=== PATIENT | female | born 1975 | race African-American/Black ===

== ENCOUNTER 2018-09-03 16:01 | Emergency (ER) | payer MEDICAID ==
[~2018-09-03] VITALS: Ht 165.1 cm; Wt 125.0 kg
[2018-09-03] MEDS ORDERED: KETOROLAC 30 MG/1 ML IM ONE (16:30)
[2018-09-03] MEDS ORDERED: KETOROLAC 30 MG/1 ML ONE (16:32)
[2018-09-03 16:50] LABS: BASOPHILS # (AUTO) 0.02 x10^3/uL (0-0.1); BASOPHILS % (AUTO) 0 % (0-1); EOSINOPHILS # (AUTO) 0.25 x10^3/uL (0-0.4); EOSINOPHILS % (AUTO) 4 % (1-7); LYMPHOCYTES # (AUTO) 1.64 x10^3/uL (1-3.4); LYMPHOCYTES % (AUTO) 25 % (22-44); MD NO; MEAN CORPUSCULAR HEMOGLOBIN 27.6 pg (27.0-34.8); MEAN CORPUSCULAR HGB CONC 33.1 g/dL (32.4-35.8); MEAN CORPUSCULAR VOLUME 83.4 fL (80-100); MEAN PLATELET VOLUME 8.3 fL (7.4-10.4); MONOCYTES # (AUTO) 0.21 x10^3/uL (0.2-0.8); MONOCYTES % (AUTO) 3 % (2-9); NEUTROPHILS # (AUTO) 4.52 x10^3/uL (1.8-6.8); NEUTROPHILS % (AUTO) 68 % (42-75); PLATELET COUNT 375 x10^3/uL (130-400); RED BLOOD COUNT 4.53 x10^6/uL (3.82-5.3); RED CELL DISTRIBUTION WIDTH 15.1 % (9.6-15.2)
[2018-09-03 16:59] LABS: ALBUMIN 3.6 g/dL (3.4-5.0); ANION GAP 10 mmol/L (5-15); CALCIUM 8.6 mg/dL (8.5-10.1); CHLORIDE 108 mmol/L (98-107)
[2018-09-03 17:04] LABS: ALANINE AMINOTRANSFERASE 21 U/L (12-78); ALKALINE PHOSPHATASE 88 U/L (45-117); BILIRUBIN,TOTAL 0.4 mg/dL (0.2-1.0); CREATININE 0.84 mg/dL (0.55-1.02); TROPONIN I < 0.015 ng/mL (0.000-0.045)
[2018-09-03 17:56] VITALS: BP 140/53
== END 2018-09-03 18:14 | disposition home or self-care (01) ==
LOC: ED 17:18
DX: M94.0 Chondrocostal junction syndrome [Tietze] (principal); R07.89 Other chest pain; I10 Essential (primary) hypertension; E11.9 Type 2 diabetes mellitus without complications
CPT/HCPCS: 36415; 71046; 80053; 83690; 84484; 85025; 85379; 93005; 96372; 99285; J1885

== ENCOUNTER 2018-11-01 14:04 | Emergency (ER) | payer MEDICAID ==
[~2018-11-01] VITALS: Ht 165.1 cm; Wt 118.0 kg
--- NOTE | 2018-11-01 14:34 | NUR ---
SUSSY IS AT THE BEDSIDE FOR ASSESSMENT/CONSULT
[2018-11-01 15:14] LABS: BASOPHILS # (AUTO) 0.04 x10^3/uL (0-0.1); BASOPHILS % (AUTO) 1 % (0-1); EOSINOPHILS # (AUTO) 0.16 x10^3/uL (0-0.4); EOSINOPHILS % (AUTO) 3 % (1-7); LYMPHOCYTES # (AUTO) 1.72 x10^3/uL (1-3.4); LYMPHOCYTES % (AUTO) 33 % (22-44); MD NO; MEAN CORPUSCULAR HEMOGLOBIN 27.6 pg (27.0-34.8); MEAN CORPUSCULAR HGB CONC 33.3 g/dL (32.4-35.8); MEAN CORPUSCULAR VOLUME 82.9 fL (80-100); MEAN PLATELET VOLUME 8.1 fL (7.4-10.4); MONOCYTES # (AUTO) 0.25 x10^3/uL (0.2-0.8); MONOCYTES % (AUTO) 5 % (2-9); NEUTROPHILS % (AUTO) 59 % (42-75); PLATELET COUNT 339 x10^3/uL (130-400); RED BLOOD COUNT 4.03 x10^6/uL (3.82-5.3); RED CELL DISTRIBUTION WIDTH 14.7 % (9.6-15.2)
[2018-11-01 15:25] LABS: MICROSCOPIC AUTO
[2018-11-01 15:26] LABS: ALBUMIN 3.1 g/dL (3.4-5.0); ANION GAP 6 mmol/L (5-15); CALCIUM 8.5 mg/dL (8.5-10.1); CHLORIDE 111 mmol/L (98-107); CREATININE 0.61 mg/dL (0.55-1.02)
[2018-11-01 15:33] LABS: CULTURE INDICATED? YES
[2018-11-01 15:34] LABS: HCG UR SG 1.018 (1.003-1.030)
[2018-11-01 15:41] LABS: CLUE CELLS PRESENT (NONE SEEN); WET PREP WBCS NONE SEEN (FEW)
[2018-11-01] MEDS ORDERED: FLUCONAZOLE 100 MG TABLET ONE (15:52)
[2018-11-01 15:58] VITALS: BP 129/84
[2018-11-01] MEDS ORDERED: FLUCONAZOLE 100 MG TABLET PO ONE (16:00)
--- NOTE | 2018-11-01 16:09 | NUR ---
PT RESTING COMFORTABLY ON AN E.R. GURNEY WHILE AWAITING D/C INSTRUCTIONS. NO FURTHER PLAN OF CARE FOR E.R. TODAY.
== END 2018-11-01 16:29 | disposition home or self-care (01) ==
LOC: ED 14:29
DX: N76.0 Acute vaginitis (principal); N30.01 Acute cystitis with hematuria; F17.210 Nicotine dependence, cigarettes, uncomplicated
CPT/HCPCS: 36415; 80048; 81001; 81025; 82040; 85025; 87077; 87086; 87186; 87210; 87491; 87591; 87808; 99283